=== PATIENT | female | born 1965 | race Two or more races ===

== ENCOUNTER 2018-12-07 17:00 | Emergency (ER) | payer SELFPAY ==
[~2018-12-07] VITALS: Ht 160 cm; Wt 75.0 kg
[2018-12-07] MEDS ORDERED: VANCOMYCIN 1 G PREMIX 200 ML IV SCH (19:30)
[2018-12-07] MEDS ORDERED: KETOROLAC 30MG/ML VIAL IV ONE (19:30)
[2018-12-07 20:15] LABS: HEMATOCRIT 39.2 % (36.0-48.0); HEMOGLOBIN 13.4 g/dL (12.0-16.0); MEAN CORPUSCULAR HEMOGLOBIN 30.5 pg (28.0-32.0); MEAN CORPUSCULAR VOLUME 89.3 fL (81.0-99.0); PLATELET 228 x1000/uL (130-400); RED BLOOD CELL COUNT 4.39 mill/uL (4.2-5.4); RED CELL DISTRIBUTION WIDTH 13.4 % (11.6-14.6)
[2018-12-07 20:17] LABS: CHLORIDE 105 mEq/L (98-107)
[2018-12-07 22:13] VITALS: BP 130/79
== END 2018-12-07 22:22 | disposition home or self-care (01) ==
LOC: ER 17:00
DX: L03.114 Cellulitis of left upper limb (principal); F17.210 Nicotine dependence, cigarettes, uncomplicated; Z90.710 Acquired absence of both cervix and uterus
CPT/HCPCS: 36415; 71045; 80053; 85027; 87040; 96365; 96375; 99284; J1885; J3370